=== PATIENT | male | born 1980 | race American Indian/Alaskan Native ===

== ENCOUNTER 2019-02-14 12:33 | Emergency (ER) | payer OTHER ==
--- NOTE | 2019-02-14 13:08 | ER ---
Nurse's Notes [facility] Name: Jimmy Armstrong Age: 38 yrs Sex: Male : 1980 Arrival Date: 02/14/2019 Time: 12:39 Bed 9 Private MD: Diagnosis: Low back pain Presentation: 02/14 12:49 Presenting complaint: Patient states: "I have back pain and I aggravated it about a aa5 week ago". Pt states "I also have to lift stuff and I climb ladders so maybe I did hurt it". Transition of care: patient was not received from another setting of care. Onset of symptoms was January 2019. Risk Assessment: Do you want to hurt yourself or someone else? Patient reports no desire to harm self or others. Initial Sepsis Screen: Does the patient meet any 2 criteria? No. Patient's initial sepsis screen is negative. Does the patient have a suspected source of infection? No. Patient's initial sepsis screen is negative. Care prior to arrival: None. 12:49 Acuity: TRISTAN 4 aa5 12:49 Method Of Arrival: Ambulatory aa5 Historical: - Allergies: 12:50 No Known Allergies; aa5 - PMHx: 12:50 None; aa5 - PSHx: 12:50 None; aa5 - Immunization history:: Adult Immunizations unknown. - Social history:: Smoking status: Patient uses tobacco products, smokes one pack cigarettes per day. - Ebola Screening: : No symptoms or risks identified at this time. Screenin:28 Abuse screen: Denies threats or abuse. Nutritional screening: No deficits noted. aa5 Tuberculosis screening: No symptoms or risk factors identified. Fall Risk None identified. Assessment: 12:50 General: Appears comfortable, Behavior is calm, cooperative. Pain: Complains of pain in aa5 lumbar area Pain does not radiate. Pain currently is 6 out of 10 on a pain scale. Quality of pain is described as sharp, Is continuous, Aggravated by increased activity. Neuro: Level of Consciousness is awake, alert, obeys commands, Oriented to person, place, time, situation. Cardiovascular: Patient's skin is warm and dry. Respiratory: Airway is patent Respiratory effort is even, unlabored, Respiratory pattern is regular, symmetrical. GI: No signs and/or symptoms were reported involving the gastrointestinal system. : No signs and/or symptoms were reported regarding the genitourinary system. EENT: No signs and/or symptoms were reported regarding the EENT system. Derm: Skin is dry, Skin is normal, Skin temperature is warm. Musculoskeletal: Range of motion: intact in all extremities. 13:28 Neuro: Level of Consciousness is awake, alert, obeys commands, Oriented to person, aa5 place, time, situation. Respiratory: Airway is patent Respiratory effort is even, unlabored, Respiratory pattern is regular, symmetrical. Derm: Skin is dry, Skin is normal, Skin temperature is warm. Vital Signs: 12:50 BP 131 / 90; Pulse 76; Resp 18 S; Temp 98.8(TE); Pulse Ox 100% on R/A; Weight 76.2 kg aa5 (R); Height 5 ft. 7 in. (170.18 cm) (R); Pain 6/10; 12:50 Body Mass Index 26.31 (76.20 kg, 170.18 cm) aa5 ED Course: 12:39 Patient arrived in ED. mr 12:48 Arm band placed on. aa5 12:48 Patient has correct armband on for positive identification. aa5 12:49 Triage completed. aa5 12:51 Oneyda Crowe, NOREEN is Primary Nurse. aa5 12:51 Alicia Ibarra [facility]-C [facility]. kb 12:51 Kyle Rollins MD is Attending Physician. kb 13:28 No provider procedures requiring assistance completed. Patient did not have IV access aa5 during this emergency room visit. Administered Medications: 13:12 Drug: TORadol - Ketorolac 15 mg Route: IM; Site: left deltoid; aa5 13:28 Follow up: Response: No adverse reaction aa5 Outcome: 13:07 Discharge ordered by . kb 13:28 Discharged to home ambulatory. aa5 13:28 Condition: good 13:28 Discharge instructions given to patient, Instructed on discharge instructions, follow up and referral plans. medication usage, Demonstrated understanding of instructions, follow-up care, medications, Prescriptions given X 2. 13:31 Patient left the ED. aa5 Signatures: Alicia Ibarra FNP-C FNP-Love Patrica Young mr Oneyda Crowe, RN RN aa5
--- NOTE | 2019-02-14 13:08 | EDPHYS ---
Physician Documentation [facility] Name: Jimmy Armstrong Age: 38 yrs Sex: Male : 1980 Arrival Date: 02/14/2019 Time: 12:39 Bed 9 Private MD: ED Physician Kyle Rollins HPI: 02/14 13:06 This 38 yrs old Other Male presents to ER via Ambulatory with complaints of Back Pain. kb 13:06 The patient presents with pain that is acute, that is chronic. The symptoms are located kb in the low back. Onset: The symptoms/episode began/occurred 1 week(s) ago. The pain does not radiate. Associated signs and symptoms: The patient has no apparent associated signs or symptoms. The problem was sustained lifting, going up and down stairs. Modifying factors: The patient symptoms are alleviated by nothing, the patient symptoms are aggravated by any movement. Severity of symptoms: At their worst the symptoms were moderate, in the emergency department the symptoms are unchanged. The patient has not experienced similar symptoms in the past. The patient has not recently seen a physician. Pt reports he has chronic back pain but it has been aggravated a lot this week. Historical: - Allergies: 12:50 No Known Allergies; aa5 - PMHx: 12:50 None; aa5 - PSHx: 12:50 None; aa5 - Immunization history:: Adult Immunizations unknown. - Social history:: Smoking status: Patient uses tobacco products, smokes one pack cigarettes per day. - Ebola Screening: : No symptoms or risks identified at this time. ROS: 13:05 Constitutional: Negative for fever, chills, and weight loss, Neck: Negative for injury, kb pain, and swelling, Cardiovascular: Negative for chest pain, palpitations, and edema, Respiratory: Negative for shortness of breath, cough, wheezing, and pleuritic chest pain, Abdomen/GI: Negative for abdominal pain, nausea, vomiting, diarrhea, and constipation, : Negative for injury, bleeding, discharge, and swelling, MS/Extremity: Negative for injury and deformity, Skin: Negative for injury, rash, and discoloration, Neuro: Negative for headache, weakness, numbness, tingling, and seizure. 13:05 Back: Positive for pain at rest, pain with movement, of the lumbar area. Exam: 13:05 Constitutional: This is a well developed, well nourished patient who is awake, alert, kb and in no acute distress. Head/Face: Normocephalic, atraumatic. Neck: Trachea midline, no thyromegaly or masses palpated, and no cervical lymphadenopathy. Supple, full range of motion without nuchal rigidity, or vertebral point tenderness. No Meningismus. Chest/axilla: Normal chest wall appearance and motion. Nontender with no deformity. No lesions are appreciated. Cardiovascular: Regular rate and rhythm with a normal S1 and S2. No gallops, murmurs, or rubs. Normal PMI, no JVD. No pulse deficits. Respiratory: Lungs have equal breath sounds bilaterally, clear to auscultation and percussion. No rales, rhonchi or wheezes noted. No increased work of breathing, no retractions or nasal flaring. Abdomen/GI: Soft, non-tender, with normal bowel sounds. No distension or tympany. No guarding or rebound. No evidence of tenderness throughout. Back: No spinal tenderness. No costovertebral tenderness. Full range of motion. Skin: Warm, dry with normal turgor. Normal color with no rashes, no lesions, and no evidence of cellulitis. MS/ Extremity: Pulses equal, no cyanosis. Neurovascular intact. Full, normal range of motion. Neuro: Awake and alert, GCS 15, oriented to person, place, time, and situation. Cranial nerves II-XII grossly intact. Motor strength 5/5 in all extremities. Sensory grossly intact. Cerebellar exam normal. Normal gait. Vital Signs: 12:50 BP 131 / 90; Pulse 76; Resp 18 S; Temp 98.8(TE); Pulse Ox 100% on R/A; Weight 76.2 kg aa5 (R); Height 5 ft. 7 in. (170.18 cm) (R); Pain 6/10; 12:50 Body Mass Index 26.31 (76.20 kg, 170.18 cm) aa5 MDM: 12:52 Patient medically screened. kb 13:04 Data reviewed: vital signs, nurses notes. Data interpreted: Pulse oximetry: on room air kb is 100 %. Interpretation: normal. Counseling: I had a detailed discussion with the patient and/or guardian regarding: the historical points, exam findings, and any diagnostic results supporting the discharge/admit diagnosis, the need for outpatient follow up, a family practitioner, to return to the emergency department if symptoms worsen or persist or if there are any questions or concerns that arise at home. Administered Medications: 13:12 Drug: TORadol - Ketorolac 15 mg Route: IM; Site: left deltoid; aa5 13:28 Follow up: Response: No adverse reaction aa5 Disposition: 15:39 Co-signature as Attending Physician, Kyle Rollins MD. rn Disposition: 02/14/19 13:07 Discharged to Home. Impression: Low back pain. - Condition is Stable. - Discharge Instructions: Back Injury Prevention, [id number], Back Pain, Adult, [id number], Back Exercises, [id number]. - Prescriptions for Cyclobenzaprine 10 mg Oral Tablet - take 1 tablet by ORAL route every 8 hours As needed; 21 tablet. Diclofenac Sodium 75 mg Oral Tablet, Delayed Release (E.C.) - take 1 tablet by ORAL route 2 times per day As needed; 30 tablet. - Medication Reconciliation Form, Thank You Letter, Antibiotic Education, Prescription Opioid Use, Work release form form. - Follow up: Emergency Department; When: As needed; Reason: Worsening of condition. Follow up: Private Physician; When: 2 - 3 days; Reason: Recheck today's complaints, Continuance of care, Re-evaluation by your physician. Signatures: Alicia Ibarra, AGILE SCRUM COACH-C AGILE SCRUM COACH-Ckb Kyle Rollins MD MD rn Calderon, Audri, RN RN aa5 Corrections: (The following items were deleted from the chart) 13:31 13:07 02/14/2019 13:07 Discharged to Home. Impression: Low back pain. Condition is aa5 Stable. Forms are Medication Reconciliation Form, Thank You Letter, Antibiotic Education, Prescription Opioid Use. Follow up: Emergency Department; When: As needed; Reason: Worsening of condition. Follow up: Private Physician; When: 2 - 3 days; Reason: Recheck today's complaints, Continuance of care, Re-evaluation by your physician. kb
[2019-02-14] MEDS ORDERED: KETOROLAC 30 MG/ML INJ ONE (13:13)
== END 2019-02-14 13:31 | disposition home or self-care (01) ==
LOC: ER 12:33
DX: M54.5 Low back pain (principal); F17.210 Nicotine dependence, cigarettes, uncomplicated
CPT/HCPCS: 96372; 99283